=== PATIENT | female | born 1985 | race Caucasian/White ===

== ENCOUNTER 2022-02-19 17:44 | Emergency (ER) | payer SELFPAY ==
[2022-02-19 18:05] VITALS: BP 138/75; PULSE 126; TEMP 98.2; BMI 36.3
== END 2022-02-19 19:15 | disposition left against medical advice (07) ==
LOC: JERFT 17:44 → JER 17:44
DX: K08.89 Other specified disorders of teeth and supporting structures (principal)
CPT/HCPCS: 99281-25